=== PATIENT | female | born 1940 | race Caucasian/White ===

== ENCOUNTER 2024-06-29 06:37 | Day surgery (SDC) | payer MEDICARE, BC, SELFPAY ==
--- NOTE | 2024-06-08 10:17 | CM ---
Addendum entered by Pau Chowdhury 06/22/24 09:00:
VN referral completed and sent to [facility] through [facility] with request for PT and SN services and start of care on 07/01.
Addendum entered by Pau Chowdhury 06/14/24 11:05:
Spoke with patient's . He states that patient would prefer to have VN services since she had these services after her last surgery. She had VN and he states that they would like to use them again.
Original Note:
Patient is scheduled for an elective R TKR on 06/29/24. Spoke with patient prior to surgery via telephone. Patient had a L TKR at in 2017. Reintroduced role of Orthopedic Navigator. Patient reports that she lives with her in a split level
home. There are no steps to enter, two to the second floor and nine to the third. She currently functions independently and uses a cane. She also has a rolling walker. She has had VN services through [facility]. PCP is Dr. Krystle Lombardo.
Discussed orthopedic program and post surgical plans. Reviewed anticipated length of stay and that goal is for her to return home at discharge. Also reviewed outpatient PT. Patient is in agreement with tentative plan and will go directly to
outpatient PT at [facility]. She will have support from her when she goes home.
Patient will complete online education.
Plan: Orthopedic Navigator will remain available to assist with the care of patient and will reassess discharge needs after surgery.
[2024-06-09 13:12] VITALS: BMI 20.2
[2024-06-09 14:16] LABS: Hematocrit 41.9 % (37.0-47.0); Hemoglobin 14.5 g/dL (12.0-16.0); Mean Corp Hgb Conc. 34.6 g/dL (33.0-37.0); Mean Corpuscular Hgb 35.9 pg (27.0-31.0); Mean Corpuscular Volume 103.7 fL (81.0-99.0); Mean Platelet Volume 9.1 fL (7.4-10.4); Platelet Count 297 10^3/uL (130-400); Red Blood Cell Count 4.04 10^6/uL (4.20-5.40); Red Cell Dist. Width 12.8 % (11.5-14.5); White Blood Cell Count 6.9 10^3/uL (4.8-10.8)
[2024-06-09 14:31] LABS: ALT (SGPT) 75 U/L (0-35); AST (SGOT) 76 U/L (14-36); Albumin 4.5 g/dl (3.5-5.0); Alkaline Phosphatase 184 U/L (38-126); Blood Urea Nitrogen 24 mg/dl (7-17); Carbon Dioxide 27 mmol/L (22-30); Chloride 98 mmol/L (98-107); Estimated Creatinine Clearance 44 ml/min; Glucose 98 mg/dl (70-99); Potassium 4.6 mmol/L (3.5-5.1); Sodium 136 mmol/L (135-145); Total Protein 6.8 g/dl (6.3-8.2); eGFR > 60.00
[2024-06-09 14:48] LABS: Glycohemoglobin (HgbA1c) 5.4 % (4.0-5.6)
[2024-06-23 16:04] VITALS: BMI 20.2
[2024-06-29] VITALS (10 sets, daily range): BP systolic 112–200; BP diastolic 76–113; PULSE 52; O2SAT 93
[2024-06-29] MEDS: TYLENOL 650 MG PO ×3 (07:54→20:40)
[2024-06-29] MEDS: CELEBREX 200 MG PO (07:54)
[2024-06-29] MEDS: NORMOSOL-R 1000 IV ×2 (07:54→10:31)
[2024-06-29] MEDS: BACTROBAN NASAL 1 GRAM NASAL (08:00)
[2024-06-29] MEDS: COREG 6.25 MG PO (08:04)
--- NOTE | 2024-06-29 10:26 | W.DS.TRANS ---
DC Summary - Trauma Registrar
-
Discharge Instructions:
Sleep Apnea Risk Low
Discharge Diagnosis/Procedures R TKA Dr. Bouhcer 06/29/24
Diet As tolerated
Activity With Walker
Driving Restrictions No driving
Bathing Restrictions OK to Shower
Other Services VN,PT
Instructions:
Stand-Alone Forms: Total Hip/Knee Replacement D/C
Changes to Home Medications: Yes
Discharge Medications:
DC Medications w/original date entered in [employer]
Ca 600 mg-D3 20 mcg-mag oxide 50 pv-Ic-cwqtza-manganese-boron tablet (Calcium 600-D3 Plus (mag-zinc)) 1 ea PO BID 07/17/17
Dry Eye Drops 1 drp BOTH EYES PRN PRN dry eyes 07/17/17
levothyroxine 75 mcg tablet 75 mcg PO DAILY 07/17/17
multivitamin (Multi-Day tablet) 1 ea PO DAILY 07/17/17
vitamins A,C,W-sjqc-mdmfpp 4,296 mcg-226 mg-90 mg capsule (PreserVision AREDS) 1 cap PO BID 07/17/17
carvedilol 6.25 mg tablet 6.25 mg PO BID 06/22/24
lamotrigine 300 mg tablet,extended release 24 hr 300 mg PO HS Seizures 06/22/24
mupirocin 2 % topical ointment 1 applic topical BID 06/22/24
rosuvastatin 10 mg tablet 10 mg PO DAILY 06/22/24
ondansetron HCl 4 mg tablet 4 mg PO Q6H PRN post-op nausea 06/24/24
acetaminophen 500 mg tablet (Tylenol Extra Strength) 1,000 mg (2 x 500 mg) PO QID #0 tabs 06/29/24
aspirin 325 mg tablet 325 mg PO DAILY Blood clot prevention/tx #0 tabs 06/29/24
dexamethasone 4 mg tablet 4 mg PO Q12H inflammation #0 tabs 06/29/24
docusate sodium 100 mg capsule (Colace) 100 mg PO BID stool softner #1 cap 06/29/24
magnesium hydroxide 400 mg/5 mL oral suspension (Milk of Magnesia) 30 ml PO HS PRN Constipation #1 mL 06/29/24
oxycodone 5 mg tablet 5 - 10 mg (1 - 2 x 5 mg) PO Q6H PRN 1 tab moderate pain, 2 tabs if severe #0 tabs 06/29/24
sennosides 8.6 mg tablet (Senokot) 17.2 mg (2 x 8.6 mg) PO BID laxative #2 tabs 06/29/24
Home Medication Changes
ondansetron HCl 4 mg tablet 4 mg PO Q6H PRN post-op nausea 06/24/24�
aspirin 325 mg tablet 325 mg PO DAILY Blood clot prevention/tx #0 tabs 06/29/24�
dexamethasone 4 mg tablet 4 mg PO Q12H inflammation #0 tabs 06/29/24�
oxycodone 5 mg tablet 5 - 10 mg (1 - 2 x 5 mg) PO Q6H PRN 1 tab moderate pain, 2 tabs if severe #0 tabs 06/29/24�
Pending Results: No
[2024-06-29] MEDS: ROXICODONE 5 MG PO (10:31)
[2024-06-29] MEDS: SYNTHROID 75 MCG PO (11:37)
[2024-06-29] MEDS: CRESTOR 10 MG PO (11:37)
[2024-06-29] MEDS: ZOFRAN 4 MG IV ×2 (13:17→20:33)
[2024-06-29] MEDS: ANCEF 5 IV (17:40)
[2024-06-29] MEDS: ASPIRIN 325 MG PO (17:59)
[2024-06-29] MEDS: DECADRON 4 MG PO (20:40)
[2024-06-29] MEDS: SENOKOT 17.2 MG PO (20:40)
[2024-06-29] MEDS: BACTROBAN 2% OINTMENT 1 APPLIC NASAL (20:40)
[2024-06-29] MEDS: COLACE 100 MG PO (20:40)
[2024-06-29] MEDS: COREG 3.125 MG PO (20:41)
[2024-06-29] MEDS: TORADOL 15 MG IV (21:05)
[2024-06-29] MEDS: NEURONTIN 300 MG PO (21:08)
[2024-06-29] MEDS: LAMICTAL 300 MG PO (21:08)
[2024-06-30] VITALS (9 sets, daily range): BP systolic 83–150; BP diastolic 58–82; PULSE 59–84; O2SAT 91–94
[2024-06-30] MEDS: ANCEF 5 IV (00:48)
[2024-06-30] MEDS: TYLENOL 650 MG PO ×3 (00:48→17:40)
[2024-06-30] MEDS: ROXICODONE 2.5 MG PO (01:08)
[2024-06-30] MEDS: TYLENOL PO ×5 (04:09→23:17)
[2024-06-30] MEDS: ROXICODONE 5 MG PO (04:18)
[2024-06-30] MEDS: SYNTHROID 75 MCG PO (04:19)
[2024-06-30] MEDS: FLOMAX 0.4 MG PO (04:50)
--- NOTE | 2024-06-30 05:06 | PTCARENOTE ---
Pt. ringing for nurse around 0400 stating she thinks she had a seizure and possibly a heart attack because her chest hurt. STEEL INSPECTOR notified and EKG obtained, read by STEEL INSPECTOR at bedside. At time of initial assessment pt. A&Ox3, drowsy, slow cognition, and
demonstrating mild new expressive aphagia. Pt. became more alert and aphagia resolved throughout assessment. STEEL INSPECTOR at bedside to see pt. and denied chest pain stating she thinks it was caused by confusion following her seizure. Pt. requesting to see a
neurologist this morning because she states she hasn't had a seizure in 'a long time'. Will alert attending. Pt. also without void since ~1999, bladder scanned for 521ml. Pt. states no urge to void and explained hospital protocol for urinary
retention. Pt. requesting to try ordered PRN Flomax - see MAR - before attempting catheterization.
--- NOTE | 2024-06-30 06:31 | W.PN.UPDATE ---
Update Note
Progress Note Update
RN notified patient is c/o chest pain and possible necrological symptoms. Patient seen and evaluated. Stable VS. Patient denies having any chest pain or shortness of breath. States she has hx of epilepsy and believes she had seizure episode just
now. Patient is on Lamictal 300mg HS and she is been taking every night and has not missed any dose. Seizure was not witnessed by any RN. Per RN patient was only oriented to self and unable to follow commands. Patient is ox3 and able to converse at
present and follow commands. Possible post seizure effects. Will order Ativan IV prn for seizures. Neurology consult if more seizure episodes. stable VS.
--- NOTE | 2024-06-30 07:54 | PTCARENOTE ---
assumed care of pt from previous shift at 0715. pt awake and alert. neurological and neurovascular checks WNL. pt denies c/o chest pressure or discomfort. sent to CT scan via stretcher w/volunteer.
[2024-06-30] MEDS: COREG PO (08:00)
[2024-06-30 08:44] LABS: Troponin I < 0.012 ng/ml
[2024-06-30] MEDS: DECADRON PO (09:00)
[2024-06-30] MEDS: COLACE PO (09:00)
[2024-06-30] MEDS: SENOKOT PO (09:00)
[2024-06-30] MEDS: BACTROBAN 2% OINTMENT NASAL (09:28)
[2024-06-30] MEDS: TORADOL 15 MG IV ×2 (09:28→20:22)
[2024-06-30] MEDS: ZOFRAN 4 MG IV (10:33)
[2024-06-30] MEDS: NORMOSOL-R 500 IV (11:30)
--- NOTE | 2024-06-30 12:07 | W.PN.ORTHO ---
Today's Communication / Plan
-
hold overnight and d/c when stable
Neuro appreciated
Assessment
.
Distal Motor Intact: Yes
Dressing:
Clean, dry and intact.
Assessment:
Change in neuro status overnight
--currently nauseous with significant hypotension/orthostasis/nausea---abnormalities on neuro exam which seem to be related to drop in blood pressure and vasovagal response, there is mild left sided 4-/5 weakness in comparison to right, as well as
visual deficit, which per patient is pre-existing due to macular degeneration. This would also explain diminished proprioception on that side.
CT head negative for bleed--Neurology appreciated
--Seizure is a possibility, vs residual anesthesia/opioid in setting of profound orthostasis/hypotension.
--IVF bolus+ Midodrine--d/c hold opioids and antihypertensives-Compazine in lieu of Zofran given anti-nausea and vasovagal
-- to provide extended release seizure med which will be dosed on arrival
Midsternal chest discomfort overnight-described as possibly GERD--troponin in range with no EKG change-repeat trop pending--add PPI and Maalox-symptoms have completely resolved and have not reoccurred after initial complaint
Plan
.
Surgery / Date: Tawnya Boucher 06/29/24
DVT Prophylaxis: Aspirin
Activity:
Out of bed.
PT/OT
Subjective
.
.:
Nausea
Patient states she began to spell words out load in the middle of the night.
Per overnight nurse, she stated she had a 'stroke or seizure and a heart attack.'
Vital Signs and Labs
.
Vital Signs and Labs:
Lab Results
06/09/24 13:22
06/09/24 13:22
Temp Pulse Resp BP Pulse Ox
97.4 F 58 18 109/64 94
06/30/24 07:10 06/30/24 11:05 06/30/24 11:05 06/30/24 11:05 06/30/24 11:05
Non-invasive Hgb result: 15.1
Physical Exam
-
HEENT: No pallor, cyanosis, or jaundice. Throat clear.
NECK: Supple. No JVD.
RESPIRATORY: Lungs clear to auscultation.
CVS: S1, S2 normal. RRR.� No murmur, rub or gallop.
ABDOMEN: Soft, non-tender. No distension. BS+/normal.
EXTREMITIES: strength equal, no calf pain with palpation
STRUCTURES ASSEMBLER: AOx3. currently nauseous and orthostatic with resultant balance issue.
L visual field central deficit and mild LUE and LLE 4-/5 weakness in comparison to right
R lean
diminished proprioception on right with finger-nose testing
[2024-06-30] MEDS: COMPAZINE 5 MG IV (12:18)
[2024-06-30] MEDS: MAALOX 30 ML PO (12:19)
[2024-06-30] MEDS: ProAmatine 5 MG PO ×2 (12:19→17:41)
[2024-06-30] MEDS: NSS (PRESERVATIVE FREE) 10 ML IV (12:28)
[2024-06-30] MEDS: PROTONIX IV 40 MG IV (12:28)
[2024-06-30] MEDS: OCEAN, SALINE MIST 2 SPRAYS NASAL (13:57)
--- NOTE | 2024-06-30 14:15 | PTCARENOTE ---
bolus complete-pt states she feels much better-able to tolerate lunch (broth and fruit cup) Ortho VS: supine: 126/69-62; sit 106/64-72;
stand 106/62-04-fdihagnz to commode-voided large amount-VS after void: 115/66-73. nausea/reflux resolved. will observe.
--- NOTE | 2024-06-30 16:17 | PTCARENOTE ---
pt instructed on use of incentive spirometry-up to 1500 level. pt assisted to stand and use IS. pox 95%. pt denies SOB. will observe
[2024-06-30 16:35] LABS: Troponin I < 0.012 ng/ml
[2024-06-30] MEDS: CRESTOR 10 MG PO (17:40)
[2024-06-30] MEDS: ASPIRIN 325 MG PO (17:40)
[2024-06-30] MEDS: MOBIC 15 MG PO (17:40)
[2024-06-30 19:30] LABS: Troponin I < 0.012 ng/ml
[2024-06-30] MEDS: BACTROBAN 2% OINTMENT 1 APPLIC NASAL (20:22)
[2024-06-30] MEDS: DECADRON 4 MG IV (20:22)
[2024-06-30] MEDS: SENOKOT 17.2 MG PO (20:23)
[2024-06-30] MEDS: COLACE 100 MG PO (20:23)
[2024-06-30] MEDS: OCEAN, SALINE MIST 1 SPRAYS NASAL (21:26)
[2024-06-30] MEDS: NON-FORMULARY ITEM 1 UNIT PO (21:26)
[2024-07-01] MEDS: SYNTHROID 75 MCG PO (05:11)
[2024-07-01] MEDS: TYLENOL 650 MG PO ×2 (05:11→09:18)
[2024-07-01 07:10] VITALS: BP 168/92
[2024-07-01] MEDS: PROTONIX IV 40 MG IV (07:53)
[2024-07-01] MEDS: ProAmatine PO (07:54)
[2024-07-01] MEDS: DECADRON 4 MG IV (07:54)
[2024-07-01] MEDS: NSS (PRESERVATIVE FREE) 10 ML IV (07:54)
--- NOTE | 2024-07-01 08:17 | CM ---
met with patient and at bedside.patient is sp r tka.patient was hypotensive/orthostatic/n/v yesterday.was seen by therapy but not able to fiinish session.seen by neuro who feels patient had a sz.ct head negative.plan dc to home with dhvn
when stable for dc.
[2024-07-01] MEDS: CRESTOR 10 MG PO (09:17)
[2024-07-01] MEDS: MOBIC 15 MG PO (09:17)
[2024-07-01] MEDS: ASPIRIN 325 MG PO (09:17)
[2024-07-01] MEDS: COLACE 100 MG PO (09:17)
[2024-07-01] MEDS: SENOKOT 17.2 MG PO (09:18)
[2024-07-01 10:45] VITALS: BP 142/80; PULSE 80; O2SAT 93
[2024-07-01 11:26] VITALS: BP 130/77; PULSE 78
--- NOTE | 2024-07-01 12:00 | W.PN.ORTHO ---
Today's Communication / Plan
-
d/c
Assessment
.
Distal Motor Intact: Yes
Dressing:
Clean, dry and intact.
Assessment:
Change in neuro status overnight evening of surgery
--associated nausea with significant hypotension/orthostasis---abnormalities on neuro exam which seem to be related to drop in blood pressure and vasovagal response, there is mild left sided 4-/5 weakness in comparison to right, as well as visual
deficit, which per patient is pre-existing due to macular degeneration. This would also explain diminished proprioception on that side.
CT head negative for bleed--Neurology appreciated
--Seizure is a possibility, vs residual anesthesia/opioid in setting of profound orthostasis/hypotension.
--IVF bolus+ Midodrine--d/c hold opioids and antihypertensives-Compazine in lieu of Zofran given anti-nausea and dizziness
-- has provided extended release Lamictal which was dosed
Symptoms completely resolved POD#2
Midsternal chest discomfort overnight-described as possibly GERD--troponin in range with no EKG change-repeat trop negative--added PPI and Maalox-symptoms have completely resolved and have not reoccurred after initial complaint
Plan
.
Surgery / Date: R DEREK Boucher 06/29/24
DVT Prophylaxis: Aspirin
Activity:
Out of bed.
PT/OT
Discharge Plan: Home w/ VN
Subjective
.
.:
Patient resting comfortably.
Vital Signs and Labs
.
Vital Signs and Labs:
Lab Results
06/09/24 13:22
06/09/24 13:22
Temp Pulse Resp BP Pulse Ox
97.8 F 72 17 168/92 93
07/01/24 07:10 07/01/24 07:54 07/01/24 07:10 07/01/24 07:54 07/01/24 07:30
Non-invasive Hgb result: 11.8
Physical Exam
-
HEENT: No pallor, cyanosis, or jaundice. Throat clear.
NECK: Supple. No JVD.
RESPIRATORY: Lungs clear to auscultation.
CVS: S1, S2 normal. RRR.� No murmur, rub or gallop.
ABDOMEN: Soft, non-tender. No distension. BS+/normal.
EXTREMITIES: strength equal, no calf pain with palpation
BALANCER: AOx3. No focal deficits. accounts payable assistant grossly intact
--- NOTE | 2024-07-01 12:19 | W.DS.TRANS ---
DC Summary - Clinical Lab Scientist
-
Discharge Instructions:
Sleep Apnea Risk Low
Discharge Diagnosis/Procedures R TKA Dr. Boucher 06/29/24
Diet As tolerated
Activity With Walker
Driving Restrictions No driving
Bathing Restrictions OK to Shower
Other Services VN,PT
Instructions:
Stand-Alone Forms: Total Hip/Knee Replacement D/C
Changes to Home Medications: Yes
Discharge Medications:
DC Medications w/original date entered in [employer]
Ca 600 mg-D3 20 mcg-mag oxide 50 nz-Oh-udyamr-manganese-boron tablet (Calcium 600-D3 Plus (mag-zinc)) 1 ea PO BID 07/17/17
Dry Eye Drops 1 drp BOTH EYES PRN PRN dry eyes 07/17/17
levothyroxine 75 mcg tablet 75 mcg PO DAILY 07/17/17
multivitamin (Multi-Day tablet) 1 ea PO DAILY 07/17/17
vitamins A,C,H-bfea-adyacw 4,296 mcg-226 mg-90 mg capsule (PreserVision AREDS) 1 cap PO BID 07/17/17
carvedilol 6.25 mg tablet 6.25 mg PO BID 06/22/24
lamotrigine 300 mg tablet,extended release 24 hr 300 mg PO HS Seizures 06/22/24
mupirocin 2 % topical ointment 1 applic topical BID 06/22/24
rosuvastatin 10 mg tablet 10 mg PO DAILY 06/22/24
ondansetron HCl 4 mg tablet 4 mg PO Q6H PRN post-op nausea 06/24/24
acetaminophen 500 mg tablet (Tylenol Extra Strength) 1,000 mg (2 x 500 mg) PO QID #0 tabs 06/29/24
aspirin 325 mg tablet 325 mg PO DAILY Blood clot prevention/tx #0 tabs 06/29/24
dexamethasone 4 mg tablet 4 mg PO Q12H inflammation #0 tabs 06/29/24
docusate sodium 100 mg capsule (Colace) 100 mg PO BID stool softner #1 cap 06/29/24
magnesium hydroxide 400 mg/5 mL oral suspension (Milk of Magnesia) 30 ml PO HS PRN Constipation #1 mL 06/29/24
sennosides 8.6 mg tablet (Senokot) 17.2 mg (2 x 8.6 mg) PO BID laxative #2 tabs 06/29/24
codeine sulfate 15 mg tablet 15 mg PO Q6H PRN moderate-severe pain #30 tabs 07/01/24
famotidine 20 mg tablet 20 mg PO HS GI prophylaxis #30 tabs 07/01/24
Home Medication Changes
ondansetron HCl 4 mg tablet 4 mg PO Q6H PRN post-op nausea 06/24/24�
acetaminophen 500 mg tablet (Tylenol Extra Strength) 1,000 mg (2 x 500 mg) PO QID #0 tabs 06/29/24�
aspirin 325 mg tablet 325 mg PO DAILY Blood clot prevention/tx #0 tabs 06/29/24�
dexamethasone 4 mg tablet 4 mg PO Q12H inflammation #0 tabs 06/29/24�
codeine sulfate 15 mg tablet 15 mg PO Q6H PRN moderate-severe pain #30 tabs 07/01/24�
famotidine 20 mg tablet 20 mg PO HS GI prophylaxis #30 tabs 07/01/24�
Pending Results: No
[2024-07-01] MEDS: TYLENOL PO (12:28)
--- NOTE | 2024-07-01 12:53 | CM ---
met with patient and at bedside.she is sp r tka,no further n/v,seen by physical therapy.patient is stable to [facility]patient signed imm. to transport home.
[2024-07-01 14:43] VITALS: BP 148/92
== END 2024-07-01 14:55 | disposition home health service (06) ==
LOC: SDS 06:37
PROVIDERS: Physician Assistant Medical; ATTENDING PHYSICIAN Orthopaedic Surgery; CONSULT PHYSICIAN Psychiatry & Neurology Neurology; FAMILY PHYSICIAN Internal Medicine
DX: M17.11 Unilateral primary osteoarthritis, right knee (principal)
CPT/HCPCS: 27447; 70450; 73560; 80053; 83036; 84484; 85027; 87070; 93005; 97110; 97116; 97162; 97167; 97530; 97535; C1713; C1776

== ENCOUNTER 2024-08-07 21:44 | Emergency (ER) | payer BC, SELFPAY ==
[2024-08-07] VITALS (15 sets, daily range): BP systolic 116–154; BP diastolic 59–105
--- NOTE | 2024-08-07 22:25 | ED.GENMED ---
History of Present Illness
General
Chief Complaint: Heart Rate Problem
Source: patient
Exam Limitations: none
Time Seen by Provider: 08/07/24 22:19
History of Present Illness
History of Present Illness:
See MDM
Past History
Past History
ED Past Medical History: HTN, Seizures and Hypothyroidism
ED Past Surgical History: Gynecological and Other
Social History
Tobacco: Non-smoker
Living: with family
Family History
Family History: Other
Phy Exam
Physical Exam
Physical Exam:
See MDM
Scores
[id number] Score for Afib Stroke Risk
Age in Years (65=0, 65-74=1, >/=75=2): > or = 75
Sex (Female=+1): Female
Congestive Heart Failure History (Yes=+1): No
Hypertension History (Yes=+1): Yes
Stroke/TIA/Thromboembolism History (Yes=+2): No
Vascular Disease History (Yes=+1): No
Diabetes Mellitus (Yes=+1): No
Score: 4
Anticoagulation Recommendations: Recommend anticoagulation (as validated in nonvalvular fib)
Course
Orders/Labs/Results
Orders:
Orders
08/07/24 21:45
EKG [Electrocardiogram (*1)] Urgent
Reason for Study: Tachycardia
EKG- Treatment ONCE
08/07/24 22:25
0.9% Sodium Chloride 1000 ml [Nss] 1,000 ml IV BOLUS
Diltiazem 125 mg/125 ml Nss [Cardizem] 125 mg in 125 ml IV NOW
Initial dose in mg/hr, then titrate:: 5
Titrate to keep:: Heart rate 80-100 bpm
Titrate by mg/hr:: 5 mg/hr
Frequency of titrations (minutes):: 15
Maximum dose in mg/hr:: 15
Diltiazem HCl [Cardizem] 20 mg IV NOW STA
08/07/24 22:37
Complete Blood Count/With Diff Urgent
Comprehensive Metabolic Panel Urgent
Magnesium Urgent
TSH Reflex To Free T4 Urgent
08/07/24 23:00
Flush (0.9% Sodium Chloride) [Flush (Nss)] See Dose Instructions IV PER PROTOCOL
08/07/24 23:46
Metoprolol [Lopressor] 25 mg PO NOW STA
Abnormal Lab Results
08/07/24
22:37
RBC 3.57 L 10^6/uL
(4.20-5.40)
Hct 36.7 L %
(37.0-47.0)
MCV 102.8 H fL
(81.0-99.0)
MCH 35.0 H pg
(27.0-31.0)
Absolute Monos (auto) 1.4 H 10^3/uL
(0.1-0.6)
Monocytes % 14.8 H %
(1.7-9.3)
BUN 30 H mg/dl
(7-17)
Glucose 139 H mg/dl
(70-99)
AST 63 H U/L
(14-36)
ALT 48 H U/L
(0-35)
Alkaline Phosphatase 174 H U/L
(38-126)
Total Protein 6.1 L g/dl
(6.3-8.2)
08/07/24 22:37
08/07/24 22:37
Vital Signs
Initial and Last Documented VS:
Initial Vital Signs
Temp Pulse Resp BP Pulse Ox
97.4 F 138 24 140/105 96
08/07/24 21:51 08/07/24 21:51 08/07/24 21:51 08/07/24 21:51 08/07/24 21:51
Last Documented Vital Signs
Temp Pulse Resp BP Pulse Ox
97.4 F 77 19 122/69 96
08/07/24 21:51 08/08/24 00:09 08/08/24 00:05 08/08/24 00:09 08/07/24 21:51
MDM/Problems Addressed
Differential Diagnosis Includes:
HPI and MDM Narrative:
83-year-old female presenting for evaluation of palpitations. This occurred just prior to arrival. She was on her way to bed when she felt heart rate beating fast. On arrival, patient found to be in A-fib. This is a new diagnosis for her. She
is not on anticoagulation. She had recent right knee replacement 1 month ago but denies any significant thigh/calf pain or swelling.
On exam, patient is anxious and distressed. Heart rate is fast and irregular. No clinical signs of DVT.
Given that this is a new diagnosis for her, she is not a synchronized cardioversion candidate. Will start Cardizem bolus and Cardizem drip. Patient has elevated [id number] score
Physical exam
General: Uncomfortable and distressed
HEENT: protecting airway
Neck: appears supple
CV: No evidence of cyanosis. Tachycardic and irregular
Resp: No accessory muscle use. Lungs clear
Abd: Non-distended
Extremities: No deformities. No unilateral leg edema or tenderness
Neuro: alert
Psych: Anxious
Skin: Intact
Problems Addressed including Acute and Chronic Conditions affecting care:
1. New onset A-fib
Acuity: acute
Prognosis: stable
Details: Patient is not anticoagulated and not a electrical cardioversion candidate. Will give IV Cardizem bolus and drip and attempt to chemically cardiovert. Will obtain basic blood work including thyroid function
Updates
Patient is on Cardizem drip and heart rate ranging from 90s to 110. Patient is feeling much better. Given that she is still mildly tachycardic and still in A-fib regardless of being on Cardizem drip, will admit
11:45 PM as the hospitalist entered the room, patient went into normal sinus rhythm. Will take off Cardizem drip and will consider just. Will give metoprolol dose
12:30 AM patient remains in sinus rhythm off the Cardizem drip. She was already given a dose of Toprol. Based on age and weight, will start on low-dose Eliquis. Discussed avoiding NSAIDs and aspirin. Patient placed on cardiac callback tracker.
She feels comfortable going home
Differential Diagnosis (but not limited to): New onset A-fib, hyperthyroidism
Testing considered: Troponin but will assess for ischemic changes once she is rate controlled
Drug therapy (if applicable): OTC meds, please see d/c instruction regarding Rx drugs
Amount and/or Complexity of Data Reviewed
Clinical info obtained from: Patient
External data reviewed: N/A
Labs I independently reviewed (but not limited to): White blood cell count normal
Radiology: N/A
Pulse Ox: not hypoxic
EKG independently reviewed: A-fib with RVR, normal axis, rate related ischemic changes laterally
Retail Coverage Merchandiser: A-fib
Critical Care: The high probability of a clinically significant, sudden or life threatening deterioration of the cardiovascular system(s) required my full and direct attention, intervention and personal management. The aggregate critical care time
was 33 minutes. This time is in addition to time spent performing reported procedures but includes the following:
[x] Data Review and interpretation
[x] Patient assessment and monitoring of vital signs
[x] Documentation
[x] Medication orders and management
Risk of Complication:
Social Determinants of health: Good social support
Discussed with other providers: Hospitalist
Escalation of Care includes Admit/Obs: Given prolonged observation the emergency department and given that her A-fib is now in sinus rhythm, patient stable for discharge
Occasional wrong word or 'sound a like' substitutions may have occurred due to the inherent limitations of voice recognition software. Read the chart carefully and recognize, using context, where substitutions have occurred.
*Critical Care Note
Total Time (30-74mins, 75-104mins- exclusive of procedures): 33 min
ED Attending Note
-
Portions of this chart may have been created with voice recognition software.� Occasional wrong word or��sound alike� substitutions may have occurred due to the inherent limitations of voice recognition software.
Discharge Plan
Departure
Patient Disposition: Home (Routine Discharge)
Date of Disposition: 08/08/24
Time of Disposition: 00:34
Patient with high blood pressure during this ER visit?: No
Discharge Problem:
New onset a-fib
Instructions: Atrial Fibrillation (DC), Chest Pain CBC Follow Up
Prescriptions:
New
metoprolol succinate [Toprol XL] 25 mg tablet extended release 24 hr
12.5 mg PO DAILY Qty: 30 0RF
Eliquis 2.5 mg tablet
2.5 mg PO BID Qty: 60 0RF
No Action
multivitamin [Multi-Day] 1 EACH tablet
1 ea PO DAILY
levothyroxine 75 MCG tablet
75 mcg PO DAILY
PreserVision AREDS 1 CAP capsule
1 cap PO BID
Ca-D3-mag mm-hrlh-fsv-shelley-bor [Calcium 600-D3 Plus (mag-zinc)] 1 EACH tablet
1 ea PO BID
Dry Eye Drops
1 drp BOTH EYES PRN PRN (Reason: dry eyes)
carvedilol 6.25 mg Tablet
6.25 mg PO BID
rosuvastatin 10 mg Tablet
10 mg PO DAILY
lamotrigine 300 mg Tablet Extended Release 24hr
300 mg PO HS
mupirocin 2 % Ointment
1 applic TOPICAL BID
ondansetron HCl 4 mg Tablet
4 mg PO Q6H PRN (Reason: post-op nausea)
Patient Comments:
*
sennosides [Senokot] 8.6 mg tablet
17.2 mg PO BID Qty: 2 0RF
magnesium hydroxide [Milk of Magnesia] 400 mg/5 mL suspension
30 ml PO HS PRN (Reason: Constipation) Qty: 1 0RF
docusate sodium [Colace] 100 mg capsule
100 mg PO BID Qty: 1 0RF
aspirin 325 mg Tablet
325 mg PO DAILY Qty: 0 0RF
Patient Comments:
*
dexamethasone 4 mg Tablet
4 mg PO Q12H Qty: 0 0RF
Patient Comments:
*
famotidine 20 mg tablet
20 mg PO HS Qty: 30 0RF
Rx Instructions:
post-op
acetaminophen-codeine 300-15 mg tablet
1 tab PO Q6H PRN (Reason: moderate-severe pain) Qty: 30 0RF
Rx Instructions:
Dx TKA
Ongping therapy
Referrals:
Destiny Lombardo MD [Family Provider] -
Swetha Argueta MD [Active] -
Activity Restrictions/Additional Instructions:
Please return for any worsening symptoms.
You may return at any time if you have further concerns.
Please follow up with your doctor at the first available appointment, preferably this week.
You were placed on the cardiac callback tracker. Someone from their office should call you in the next few days. If you do not hear from them in the next few days, please give them a call.
Since I am placing you on a blood thinner, please avoid medications such as Motrin and ibuprofen. Do not take your aspirin until told otherwise by cardiology.
Thank you for choosing [facility].
Interventions
Interventions:
*Risk Screen - Suicide Last Done: 08/07/24 21:46
*Neglect/Abuse Screening Last Done: 08/07/24 21:46
ED- Fall Risk Assessment Last Done: 08/08/24 00:17
*ED COVID-19 Vaccine History Last Done: 08/08/24 00:17
Discharge Date and Time
Print Language: NORWEGI[place]
[2024-08-07] MEDS: NSS 1000 IV (22:40)
[2024-08-07] MEDS: CARDIZEM 20 MG IV (22:45)
[2024-08-07 22:47] LABS: % Basophils 1.4 % (0-2); % Eosinophils 4.1 % (0-6); % Immature Granulocytes 0.2 % (0-0.5); % Monocytes 14.8 % (1.7-9.3); % Neutrophils 57.5 % (42.2-75.2); Absolute Basophils 0.1 10^3/uL (0-0.2); Absolute Eosinophils 0.4 10^3/uL (0-0.7); Absolute Lymphocytes 2.1 10^3/uL (1.2-3.4); Absolute Monocytes 1.4 10^3/uL (0.1-0.6); Absolute Neutrophils 5.4 10^3/uL (1.4-6.5); Hematocrit 36.7 % (37.0-47.0); Hemoglobin 12.5 g/dL (12.0-16.0); Mean Corp Hgb Conc. 34.1 g/dL (33.0-37.0); Mean Corpuscular Volume 102.8 fL (81.0-99.0); Mean Platelet Volume 8.7 fL (7.4-10.4); Nucleated Red Blood Cells % 0 %; Platelet Count 311 10^3/uL (130-400); Red Blood Cell Count 3.57 10^6/uL (4.20-5.40); Red Cell Dist. Width 13.6 % (11.5-14.5); White Blood Cell Count 9.4 10^3/uL (4.8-10.8)
[2024-08-07] MEDS: CARDIZEM 125 IV (22:48)
[2024-08-07 23:03] LABS: ALT (SGPT) 48 U/L (0-35); AST (SGOT) 63 U/L (14-36); Albumin 4.1 g/dl (3.5-5.0); Alkaline Phosphatase 174 U/L (38-126); Blood Urea Nitrogen 30 mg/dl (7-17); Carbon Dioxide 25 mmol/L (22-30); Chloride 102 mmol/L (98-107); Glucose 139 mg/dl (70-99); Potassium 3.5 mmol/L (3.5-5.1); Sodium 138 mmol/L (135-145); Total Bilirubin 0.6 mg/dl (0.2-1.3); Total Protein 6.1 g/dl (6.3-8.2); eGFR > 60.00
[2024-08-07 23:37] LABS: TSH Reflex To Free T4 0.69 uIU/ml (0.47-4.68)
[2024-08-08] VITALS (8 sets, daily range): BP systolic 122–136; BP diastolic 69–79; BMI 21.3
[2024-08-08] MEDS: LOPRESSOR 25 MG PO (00:09)
[2024-08-08] MEDS: FLUSH (NSS) 1 FLUSH IV (00:13)
== END 2024-08-08 01:09 | disposition home or self-care (01) ==
LOC: EMR 21:44
PROVIDERS: EMERGENCY PHYSICIAN Student in an Organized Health Care Education/Training Program; FAMILY PHYSICIAN Internal Medicine
DX: I48.91 Unspecified atrial fibrillation (principal); I10 Essential (primary) hypertension; E03.9 Hypothyroidism, unspecified; E05.90 Thyrotoxicosis, unspecified without thyrotoxic crisis or storm
CPT/HCPCS: 99291; 80053; 83735; 84443; 85025; 93005

== ENCOUNTER → 2024-08-19 11:15 | Outpatient (REF) | payer BC, SELFPAY | LOC: RCS 11:15 | PROVIDERS: ATTENDING PHYSICIAN Internal Medicine Cardiovascular Disease; FAMILY PHYSICIAN Internal Medicine | DX: I48.0 Paroxysmal atrial fibrillation (principal) | CPT/HCPCS: 93306 ==

== ENCOUNTER 2024-08-19 12:41 | Outpatient (RCR) | payer BC, SELFPAY | END 2024-08-19 23:59 | disposition home or self-care (01) | LOC: RPT 12:41 | PROVIDERS: ATTENDING PHYSICIAN Orthopaedic Surgery | DX: M17.11 Unilateral primary osteoarthritis, right knee (principal); Z47.89 Encounter for other orthopedic aftercare; Z73.6 Limitation of activities due to disability | CPT/HCPCS: 97110; 97112; 97116; 97161; 97530 ==

== ENCOUNTER 2024-09-14 12:58 | Outpatient (RCR) | payer BC, SELFPAY | END 2024-09-14 23:59 | disposition home or self-care (01) | LOC: RPT 12:58 | PROVIDERS: ATTENDING PHYSICIAN Orthopaedic Surgery | DX: M17.11 Unilateral primary osteoarthritis, right knee (principal); Z47.89 Encounter for other orthopedic aftercare; Z73.6 Limitation of activities due to disability | CPT/HCPCS: 97110; 97112; 97530 ==

== ENCOUNTER 2024-09-28 14:33 | Outpatient (RCR) | payer BC, SELFPAY | END 2024-09-29 14:36 | disposition home or self-care (01) | LOC: RPT 14:33 | PROVIDERS: ATTENDING PHYSICIAN Orthopaedic Surgery | DX: Z47.1 Aftercare following joint replacement surgery (principal); M17.11 Unilateral primary osteoarthritis, right knee; Z73.6 Limitation of activities due to disability; R26.89 Other abnormalities of gait and mobility; M62.81 Muscle weakness (generalized); Z96.651 Presence of right artificial knee joint | CPT/HCPCS: 97110; 97530 ==

== ENCOUNTER 2024-10-13 07:00 | Outpatient (RCR) | payer BC, SELFPAY | END 2024-10-13 23:59 | disposition home or self-care (01) | LOC: RPT 07:00 | PROVIDERS: FAMILY PHYSICIAN Internal Medicine | DX: R26.9 Unspecified abnormalities of gait and mobility (principal); Z73.6 Limitation of activities due to disability | CPT/HCPCS: 97110; 97163 ==

== ENCOUNTER 2024-11-22 13:13 | Outpatient (RCR) | payer BC, SELFPAY | END 2024-11-22 23:59 | disposition home or self-care (01) | LOC: RPT 13:13 | PROVIDERS: ATTENDING PHYSICIAN Nurse Practitioner Adult Health; FAMILY PHYSICIAN Internal Medicine | DX: R26.9 Unspecified abnormalities of gait and mobility (principal); Z73.6 Limitation of activities due to disability | CPT/HCPCS: 97110; 97112; 97530 ==

== ENCOUNTER 2025-04-22 11:03 | Emergency (ER) | payer BC, SELFPAY ==
[2025-04-22 11:06] VITALS: BP 135/87
[2025-04-22 11:21] VITALS: BMI 20.5
[2025-04-22 11:22] VITALS: BP 160/94
[2025-04-22 11:32] LABS: % Basophils 0.9 % (0-2); % Eosinophils 1.1 % (0-6); % Immature Granulocytes 0.2 % (0-0.5); % Lymphocytes 12.4 % (20.5-51.1); % Monocytes 8.5 % (1.7-9.3); % Neutrophils 76.9 % (42.2-75.2); Absolute Basophils 0.1 10^3/uL (0-0.2); Absolute Eosinophils 0.1 10^3/uL (0-0.7); Absolute Lymphocytes 1.1 10^3/uL (1.2-3.4); Absolute Monocytes 0.7 10^3/uL (0.1-0.6); Absolute Neutrophils 6.5 10^3/uL (1.4-6.5); Hematocrit 43.7 % (37.0-47.0); Hemoglobin 14.8 g/dL (12.0-16.0); Mean Corp Hgb Conc. 33.9 g/dL (33.0-37.0); Mean Corpuscular Hgb 35.2 pg (27.0-31.0); Mean Corpuscular Volume 103.8 fL (81.0-99.0); Mean Platelet Volume 8.6 fL (7.4-10.4); Nucleated Red Blood Cells % 0 %; Platelet Count 326 10^3/uL (130-400); Red Blood Cell Count 4.21 10^6/uL (4.20-5.40); Red Cell Dist. Width 12.7 % (11.5-14.5); White Blood Cell Count 8.4 10^3/uL (4.8-10.8)
--- NOTE | 2025-04-22 11:47 | ED.GENMED ---
History of Present Illness
General
Chief Complaint: Heart Rate Problem
Source: patient
Exam Limitations: none
Time Seen by Provider: 04/22/25 11:42
History of Present Illness
History of Present Illness:
See MDM
Past History
Past History
ED Past Medical History: HTN, Seizures and Hypothyroidism
ED Past Surgical History: Gynecological and Other
Social History
Tobacco: Non-smoker
Living: with family
Family History
Family History: Other
Phy Exam
Physical Exam
Physical Exam:
See MDM
Course
Orders/Labs/Results
Orders:
Orders
04/22/25 11:04
Electrocardiogram (*1) Urgent
Reason for Study: Tachycardia
EKG- Treatment ONCE
04/22/25 11:23
Complete Blood Count/With Diff Urgent
Comprehensive Metabolic Panel Urgent
Abnormal Lab Results
04/22/25
11:23
MCV 103.8 H fL
(81.0-99.0)
MCH 35.2 H pg
(27.0-31.0)
Absolute Lymphs (auto) 1.1 L 10^3/uL
(1.2-3.4)
Absolute Monos (auto) 0.7 H 10^3/uL
(0.1-0.6)
Neutrophils % 76.9 H %
(42.2-75.2)
Lymphocytes % 12.4 L %
(20.5-51.1)
BUN 24 H mg/dl
(7-17)
Glucose 119 H mg/dl
(70-99)
AST 45 H U/L
(14-36)
ALT 43 H U/L
(0-35)
Alkaline Phosphatase 139 H U/L
(38-126)
04/22/25 11:23
04/22/25 11:23
Vital Signs
Initial and Last Documented VS:
Initial Vital Signs
Temp Pulse Resp BP Pulse Ox
98.4 F 84 16 135/87 97
04/22/25 11:06 04/22/25 11:06 04/22/25 11:06 04/22/25 11:06 04/22/25 11:06
Last Documented Vital Signs
Temp Pulse Resp BP Pulse Ox
98.4 F 77 17 135/87 95
04/22/25 11:06 04/22/25 11:22 04/22/25 11:22 04/22/25 11:06 04/22/25 11:22
MDM/Problems Addressed
Differential Diagnosis Includes:
HPI and MDM Narrative:
84-year-old female presenting for evaluation of palpitations. Patient developed a sudden onset of palpitations at home. She called EMS who noted SVT. Patient felt weak and dizzy and had a near syncopal episode. After 1 dose of adenosine, all
symptoms resolved. Patient now with no complaints. Patient was diagnosed with A-fib 1 year ago. She is compliant with Eliquis. She was prescribed Toprol but takes this on an as-needed basis
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
Physical exam
General: Well appearing and non-toxic
HEENT: protecting airway
Neck: appears supple
CV: No evidence of cyanosis. Regular rate and rhythm
Resp: No accessory muscle use
Abd: Non-distended
Extremities: No deformities
Neuro: alert
Psych: Normal affect
Skin: Intact
Problems Addressed including Acute and Chronic Conditions affecting care:
1. SVT
Acuity: acute
Prognosis: stable
Details: Symptoms resolved with adenosine by EMS. Will obtain basic blood work
Updates
Blood work without clinically significant abnormalities. Patient remains in sinus rhythm and feels comfortable going home
Differential Diagnosis (but not limited to): SVT, A-fib with RVR
Testing considered: Troponin patient denies chest pain or shortness of breath
Drug therapy (if applicable): OTC meds, please see d/c instruction regarding Rx drugs
Amount and/or Complexity of Data Reviewed
Clinical info obtained from: Patient
External data reviewed: N/A
Labs I independently reviewed (but not limited to): Sodium and potassium normal
Radiology: N/A
Pulse Ox: not hypoxic
EKG independently reviewed: Sinus rhythm, normal axis, no STEMI
Felt [place]anger: Sinus rhythm
Critical Care: N/A
Risk of Complication:
Social Determinants of health: Good social support
Discussed with other providers: N/A
Escalation of Care includes Admit/Obs: After being observed in the Emergency Department, pt stable for discharge.
Occasional wrong word or 'sound a like' substitutions may have occurred due to the inherent limitations of voice recognition software. Read the chart carefully and recognize, using context, where substitutions have occurred.
*Critical Care Note
Total Time (30-74mins, 75-104mins- exclusive of procedures): Not Applicable
ED Attending Note
-
Portions of this chart may have been created with voice recognition software.� Occasional wrong word or��sound alike� substitutions may have occurred due to the inherent limitations of voice recognition software.
Discharge Plan
Departure
Patient Disposition: Home (Routine Discharge)
Date of Disposition: 04/22/25
Time of Disposition: 12:49
Patient with high blood pressure during this ER visit?: No
Discharge Problem:
SVT (supraventricular tachycardia)
Instructions: Supraventricular tachycardia (SVT)
Prescriptions:
No Action
multivitamin [Multi-Day] 1 EACH tablet
1 ea PO DAILY
levothyroxine 75 MCG tablet
75 mcg PO DAILY
PreserVision AREDS 1 CAP capsule
1 cap PO BID
Ca-D3-mag [id number]-ibbw-oxg-shelley-bor [Calcium 600-D3 Plus (mag-zinc)] 1 EACH tablet
1 ea PO BID
Dry Eye Drops
1 drp BOTH EYES PRN PRN (Reason: dry eyes)
carvedilol 6.25 mg Tablet
6.25 mg PO BID
rosuvastatin 10 mg Tablet
10 mg PO DAILY
lamotrigine 300 mg Tablet Extended Release 24hr
300 mg PO HS
mupirocin 2 % Ointment
1 applic TOPICAL BID
ondansetron HCl 4 mg Tablet
4 mg PO Q6H PRN (Reason: post-op nausea)
Patient Comments:
*
sennosides [Senokot] 8.6 mg tablet
17.2 mg PO BID Qty: 2 0RF
magnesium hydroxide [Milk of Magnesia] 400 mg/5 mL suspension
30 ml PO HS PRN (Reason: Constipation) Qty: 1 0RF
docusate sodium [Colace] 100 mg capsule
100 mg PO BID Qty: 1 0RF
aspirin 325 mg Tablet
325 mg PO DAILY Qty: 0 0RF
Patient Comments:
*
dexamethasone 4 mg Tablet
4 mg PO Q12H Qty: 0 0RF
Patient Comments:
*
famotidine 20 mg tablet
20 mg PO HS Qty: 30 0RF
Rx Instructions:
post-op
acetaminophen-codeine 300-15 mg tablet
1 tab PO Q6H PRN (Reason: moderate-severe pain) Qty: 30 0RF
Rx Instructions:
Dx TKA
Ongping therapy
metoprolol succinate [Toprol XL] 25 mg tablet extended release 24 hr
12.5 mg PO DAILY Qty: 30 0RF
Eliquis 2.5 mg tablet
2.5 mg PO BID Qty: 60 0RF
Referrals:
Destiny Lombardo MD [Family Provider, Internal Medicine]
Activity Restrictions/Additional Instructions:
Please return for any worsening symptoms.
You may return at any time if you have further concerns.
Please follow up with your doctor at the first available appointment, preferably this week.
If the symptoms are persistent, you may benefit from taking the metoprolol daily.
Thank you for choosing [facility].
Interventions
Interventions:
*Risk Screen - Suicide Last Done: 04/22/25 11:20
*General Assessment Last Done: 04/22/25 11:20
*Neglect/Abuse Screening Last Done: 04/22/25 11:20
*ED COVID-19 Vaccine History Last Done: 04/22/25 11:20
ED- Cardiac Assessment Last Done: 04/22/25 11:20
ED- Pulmonary Assessment Last Done: 04/22/25 11:22
Discharge Date and Time
Print Language: TURKISH
[2025-04-22 11:49] LABS: ALT (SGPT) 43 U/L (0-35); AST (SGOT) 45 U/L (14-36); Albumin 4.8 g/dl (3.5-5.0); Alkaline Phosphatase 139 U/L (38-126); Blood Urea Nitrogen 24 mg/dl (7-17); Calcium 9.6 mg/dl (8.4-10.2); Carbon Dioxide 26 mmol/L (22-30); Chloride 105 mmol/L (98-107); Estimated Creatinine Clearance 38 ml/min; Glucose 119 mg/dl (70-99); Potassium 4.3 mmol/L (3.5-5.1); Sodium 138 mmol/L (135-145); Total Bilirubin 1.1 mg/dl (0.2-1.3); Total Protein 7.2 g/dl (6.3-8.2); eGFR > 60.00
== END 2025-04-22 13:01 | disposition home or self-care (01) ==
LOC: EMR 11:03
PROVIDERS: EMERGENCY PHYSICIAN Student in an Organized Health Care Education/Training Program; FAMILY PHYSICIAN Internal Medicine
DX: I47.10 Supraventricular tachycardia, unspecified (principal); I10 Essential (primary) hypertension; E03.9 Hypothyroidism, unspecified
CPT/HCPCS: 99283; 80053; 85025; 93005